=== PATIENT | male | born 1965 | race Caucasian/White ===

== ENCOUNTER 2024-12-12 05:38 | Inpatient (IN) | payer OTHER ==
[~2024-12-12] VITALS: Ht 175.3 cm; Wt 70.1 kg
[2024-12-12] VITALS (14 sets, daily range): BP systolic 114–163; BP diastolic 78–105; PULSE 70–97; RESP 11–26; TEMP 36.5–36.9; O2SAT 95–97
[2024-12-12] MEDS: ALBUTEROL (0.083%) 2.5MG/3ML NEB HHN SCH (06:08)
[2024-12-12] MEDS: IPRATROPIUM BROMIDE (0.02%) 0.5MG/2.5ML NEB HHN SCH (06:08)
[2024-12-12 06:09] LABS: BASOPHILS % 1.0 % (0.0-2.0); EOSINOPHILS % 1.2 % (0.0-5.0); HEMATOCRIT. 39.0 % (42.0-52.0); HEMOGLOBIN. 13.5 g/dL (14.0-18.0); LYMPHOCYTES % 35.6 % (20.0-50.0); MEAN PLATELET VOLUME 6.9 fl (7.4-10.4); MONOCYTES % 11.0 % (2.0-8.0); NEUTROPHILS % 51.2 % (40.0-76.0); PLATELET 203 x1000/uL (130-400); RED BLOOD CELL COUNT 3.87 mill/uL (4.7-6.1); RED CELL DISTRIBUTION WIDTH 13.7 % (11.6-14.6)
[2024-12-12] MEDS: METHYLPREDNISOLONE SOD SUCC 125MG/2ML (ACT-O-VIAL) IV ONE (06:12)
[2024-12-12 06:21] LABS: CREATININE 0.7 mg/dL (0.6-1.3)
[2024-12-12 06:22] LABS: TROPONIN I HIGH SENSITIVITY 52 ng/L (3.0-53); UREA NITROGEN BLOOD 10 mg/dL (9-23)
[2024-12-12 06:23] LABS: ASPARTATE AMINOTRANSFERASE 83 IU/L (<34)
[2024-12-12 06:24] LABS: BILIRUBIN DIRECT 0.2 mg/dL (<=3.0); BILIRUBIN TOTAL 0.8 mg/dL (0.1-1.0); PROTEIN TOTAL 7.1 g/dL (6.0-8.3)
[2024-12-12 09:04] LABS: TROPONIN I HIGH SENSITIVITY 73 ng/L (3.0-53)
[2024-12-12] MEDS ORDERED: ONDANSETRON HCL 4MG/2ML INJ IV PRN (10:15)
[2024-12-12] MEDS ORDERED: CLONIDINE 0.1MG TABLET PO PRN (10:15)
[2024-12-12] MEDS ORDERED: HYDROCODONE/ACETAMINOPHEN 5/325MG TABLET PO PRN (10:15)
[2024-12-12] MEDS ORDERED: ACETAMINOPHEN 325MG TABLET PO PRN (10:15)
[2024-12-12] MEDS ORDERED: MAGNESIUM/ALUMINUM HYDROXIDE/SIMETHICONE 30ML UDC PO PRN (10:15)
[2024-12-12] MEDS ORDERED: ENOXAPARIN 40MG/0.4ML SYR SUBCUT SCH (10:30)
[2024-12-12] MEDS ORDERED: NALOXONE HCL 0.4MG/ML VIAL IV PRN (10:30)
[2024-12-12] MEDS ORDERED: LISI10TA26 PO (15:08)
[2024-12-12] MEDS ORDERED: BICT1TAB PO (15:08)
[2024-12-12] MEDS: PANTOPRAZOLE SODIUM 40 MG/VIAL IV SCH (15:10)
[2024-12-12] MEDS: ASPIRIN 81MG TABLET PO SCH (15:11)
[2024-12-12] MEDS: METHYLPREDNISOLONE SOD SUCC 40MG/ML (ACT-O-VIAL) IV SCH (15:11)
[2024-12-12] MEDS: ISOSORBIDE MONONITRATE 30MG TABLET SR 24HR PO SCH (15:11)
[2024-12-12] MEDS: ENOXAPARIN 80MG/0.8ML SYR SUBCUT SCH (15:12)
[2024-12-12] MEDS: NICOTINE 14MG PATCH TD SCH (15:27)
[2024-12-12 17:25] LABS: INR 1.0
[2024-12-12 17:36] LABS: TROPONIN I HIGH SENSITIVITY 47 ng/L (3.0-53)
[2024-12-12] MEDS: IPRATROPIUM/ALBUTEROL 0.5-3(2.5)MG/3ML NEB HHN SCH (21:21)
[2024-12-12] MEDS: BUDESONIDE 0.5MG/2ML NEB HHN SCH (21:21)
[2024-12-12] MEDS: ATORVASTATIN CALCIUM 40MG TABLET PO SCH (21:44)
[2024-12-13] VITALS (10 sets, daily range): BP systolic 108–139; BP diastolic 61–98; PULSE 62–93; RESP 11–24; TEMP 36.5–36.7; O2SAT 90–97
[2024-12-13] MEDS: ZOLPIDEM TARTRATE 5MG TABLET PO PRN (00:29)
[2024-12-13 00:40] LABS: TROPONIN I HIGH SENSITIVITY 32 ng/L (3.0-53)
[2024-12-13 06:16] LABS: BASOPHILS % 0.1 % (0.0-2.0); EOSINOPHILS % 0.0 % (0.0-5.0); HEMATOCRIT. 37.4 % (42.0-52.0); HEMOGLOBIN. 13.1 g/dL (14.0-18.0); LYMPHOCYTES % 9.6 % (20.0-50.0); MEAN PLATELET VOLUME 7.6 fl (7.4-10.4); MONOCYTES % 8.6 % (2.0-8.0); NEUTROPHILS % 81.7 % (40.0-76.0); PLATELET 190 x1000/uL (130-400); RED BLOOD CELL COUNT 3.72 mill/uL (4.7-6.1); RED CELL DISTRIBUTION WIDTH 13.6 % (11.6-14.6)
[2024-12-13 06:28] LABS: CREATININE 0.6 mg/dL (0.6-1.3)
[2024-12-13 06:29] LABS: UREA NITROGEN BLOOD 10 mg/dL (9-23)
[2024-12-13] MEDS ORDERED: DIPHENHYDRAMINE 50MG/ML VIAL ONE (07:21)
[2024-12-13] MEDS ORDERED: HEPARIN 1000 UNITS/ML 10ML ONE (07:21)
[2024-12-13] MEDS ORDERED: IODIXANOL 320MG/ML 100 ML BOTTLE IV ONE (07:21)
[2024-12-13] MEDS ORDERED: LIDOCAINE HCL 1% 20ML VIAL ONE (07:21)
[2024-12-13] MEDS ORDERED: VERAPAMIL HCL 2.5 MG/1 ML 2ML VIAL IV ONE (07:21)
[2024-12-13] MEDS: BIKTARVY 50-200-25MG PO SCH (09:00)
[2024-12-13] MEDS ORDERED: MIDAZOLAM HCL 2 MG/2 ML VIAL ONE (09:19)
[2024-12-13] MEDS ORDERED: FENTANYL CITRATE/PF 50MCG/ML 2ML VIAL ONE (09:20)
[2024-12-13] MEDS: LEVOFLOXACIN 500MG TABLET PO SCH (11:35)
[2024-12-13] MEDS ORDERED: ISOS30TA91 PO (11:56)
[2024-12-13] MEDS ORDERED: LEVO-65 MT (11:56)
[2024-12-13] MEDS ORDERED: ACETAMINOPHEN 325MG TABLET PO PRN (12:00)
[2024-12-13] MEDS ORDERED: ATROPINE SULFATE 1MG/10ML SYR IV PRN (12:00)
[2024-12-13] MEDS ORDERED: ENOXAPARIN 80MG/0.8ML SYR SUBCUT SCH (18:00)
[2024-12-14 09:10] LABS: ABSOLUTE BASOPHILS 0.0 x10E3/uL (0.0-0.2); ABSOLUTE EOSINOPHILS 0.0 x10E3/uL (0.0-0.4); ABSOLUTE LYMPHOCYTES 0.8 x10E3/uL (0.7-3.1); ABSOLUTE MONOCYTES 0.3 x10E3/uL (0.1-0.9); ABSOLUTE NEUTROPHILS 4.1 x10E3/uL (1.4-7.0); BASOPHILS 0 % (Not Estab.); EOSINOPHILS 0 % (Not Estab.); IMMATURE GRANULOCYTES 0 % (Not Estab.); IMMATURE GRANULOCYTES ABSOLUTE 0.0 x10E3/uL (0.0-0.1); LYMPHOCYTES 16 % (Not Estab.); MEAN CORPUSCULAR HGB CONC. 33.7 g/dL (31.5-35.7); MONOCYTES 6 % (Not Estab.); NEUTROPHILS 78 % (Not Estab.); PLATELETS 227 x10E3/uL (150-450); RBC 4.09 x10E6/uL (4.14-5.80); RED CELL DISTRIBUTION WIDTH 12.0 % (11.6-15.4); WBC 5.2 x10E3/uL (3.4-10.8)
[2024-12-14 15:07] LABS: % CD 3 POS. LYMPHOCYTES 92.4 % (57.5-86.2); % CD 4 POS. LYMPHOCYTES 21.6 % (30.8-58.5); % CD 8 POS. LYMPH 71.2 % (12.0-35.5); ABSOLUTE CD 3 739 /uL (622-2402); ABSOLUTE CD 4 HELPER 173 /uL (359-1519); ABSOLUTE CD 8 SUPPRESSOR 570 /uL (109-897)
== END 2024-12-13 16:00 | disposition home or self-care (01) | DRG 280 ==
LOC: ER 05:38 → 5EST 07:36 → EDBEDREQTM 07:39 → EDBEDREQ 07:39 → ENRESERV 10:05
PROVIDERS: ADMIT Internal Medicine; ATTEND Internal Medicine
PROC: 5A09357 Assistance with Respiratory Ventilation, Less than 24 Consecutive Hours, Continuous Positive Airway Pressure (ICD-10-PCS; 2024-12-12)
PROC: 4A023N7 Measurement of Cardiac Sampling and Pressure, Left Heart, Percutaneous Approach (ICD-10-PCS; principal; 2024-12-13)
PROC: B211YZZ Fluoroscopy of Multiple Coronary Arteries using Other Contrast (ICD-10-PCS; 2024-12-13)
DX: I21.4 Non-ST elevation (NSTEMI) myocardial infarction (principal); J96.01 Acute respiratory failure with hypoxia; J44.1 Chronic obstructive pulmonary disease with (acute) exacerbation; I25.10 Atherosclerotic heart disease of native coronary artery without angina pectoris; D53.9 Nutritional anemia, unspecified; J43.9 Emphysema, unspecified; F17.210 Nicotine dependence, cigarettes, uncomplicated; I11.0 Hypertensive heart disease with heart failure; I50.9 Heart failure, unspecified; Z88.1 Allergy status to other antibiotic agents; Z88.2 Allergy status to sulfonamides; Z88.0 Allergy status to penicillin
CPT/HCPCS: 36415; 71045; 80048; 80076; 83880; 84443; 84484; 85025; 86359; 86360; 93005; 93306; 93458; 93970; 94070; 94640; 94660; 94664; 96374; 98960; 99291; A4606; C1769; C1887; C1893; J1200; J1644; J1650; J2003; J2250; J2470; J2919; J3010; J3490; J7626; Q9967